=== PATIENT | female | born 1955 | race Caucasian/White ===

== ENCOUNTER 2018-12-30 18:35 | Emergency (ER) | payer OTHER, SELFPAY ==
[~2018-12-30] VITALS: Ht 157.5 cm; Wt 86.4 kg
[~2018-12-30 18:35] MED LIST: AMIT25TA9 PO; ASPI81TA81 PO; HYDR25TA PO; LISI-663 PO; SIMV-260 PO
[2018-12-30] MEDS ORDERED: LISI-662 PO (18:48)
[2018-12-30] MEDS ORDERED: SILVER SULFADIAZINE 1% 25 GM CREAM TP ONE (19:00)
[2018-12-30 19:28] VITALS: BP 145/85
== END 2018-12-30 19:29 | disposition home or self-care (01) ==
LOC: EMS 18:36
DX: T23.172A Burn of first degree of left wrist, initial encounter (principal); I10 Essential (primary) hypertension; E78.00 Pure hypercholesterolemia, unspecified; Z90.710 Acquired absence of both cervix and uterus; Z88.5 Allergy status to narcotic agent; Z79.899 Other long term (current) drug therapy; X11.8XXA Contact with other hot tap-water, initial encounter; Y93.G3 Activity, cooking and baking; Y92.89 Other specified places as the place of occurrence of the external cause; Y99.8 Other external cause status
CPT/HCPCS: 16000

== ENCOUNTER 2023-08-02 02:23 | Emergency (ER) | payer MEDICARE, OTHER ==
[~2023-08-02] VITALS: Ht 157.5 cm; Wt 89.0 kg
[~2023-08-02 02:23] MED LIST changes: -AMIT25TA9 PO; -ASPI81TA81 PO; -HYDR25TA PO; -LISI-663 PO; +LISI-894 PO
[2023-08-02 02:28] VITALS: BP 150/60; PULSE 89; RESP 18; TEMP 98.3
[2023-08-02 02:54] LABS: BASOPHILS % (AUTO) 0.6 % (0.0-2.0); EOSINOPHILS % (AUTO) 2.4 % (1.0-6.0); HEMATOCRIT 41.7 % (36-46); HEMOGLOBIN 14.3 g/dL (12.0-16.0); LYMPHOCYTES # (AUTO) 2.9 K/uL (1.0-4.8); LYMPHOCYTES % (AUTO) 26.7 % (22.0-44.0); MEAN CORPUSCULAR HEMOGLOBIN 31.2 pg (26.0-34.0); MEAN CORPUSCULAR HGB CONC 34.4 G/dL (31.0-37.0); MEAN CORPUSCULAR VOLUME 91 fL (80-100); MONOCYTES # (AUTO) 0.7 K/uL (0.1-1.0); MONOCYTES % (AUTO) 6.6 % (2.0-9.0); NEUTROPHILS % (AUTO) 63.7 % (40.0-70.0); PLATELET COUNT (AUTO) 212 K/uL (150-450); RED CELL DISTRIBUTION WIDTH 13.3 % (11.5-14.5)
[2023-08-02 03:01] LABS: ANION GAP 11 mmol/L (8-16); CALCIUM, TOTAL 10.5 mg/dL (8.8-10.5); CARBON DIOXIDE 25 mmol/L (22-29); CHLORIDE 105 mmol/L (98-107); CREATININE 0.77 mg/dL (0.60-1.30); GLOMERULAR FILTR. RATE CALC > 60 mL/min (>60); GLUCOSE,RANDOM 130 mg/dL (70-110); POTASSIUM 3.6 mmol/L (3.5-5.1); SODIUM SERUM 141 mmol/L (136-145); UREA NITROGEN, BLOOD 15 mg/dL (7-18)
[2023-08-02 03:06] LABS: ALANINE AMINOTRANSFERASE 30 U/L (12-78); ALKALINE PHOSPHATASE 160 U/L (46-116); ASPARTATE AMINOTRANSFERASE 17 U/L (15-37); BILIRUBIN,TOTAL 0.4 mg/dL (0.1-1.0); TOTAL PROTEIN, SERUM 7.5 g/dL (6.4-8.2)
[2023-08-02 03:10] LABS: APPEARANCE,URINE CLEAR (CLEAR); BILIRUBIN,URINE NEGATIVE (NEGATIVE); COLOR,URINE COLORLESS (YELLOW); GLUCOSE, URINE (UA) NEGATIVE (NEGATIVE); KETONES,URINE NEGATIVE (NEGATIVE); LEUKOCYTE ESTERASE ,URINE NEGATIVE (NEGATIVE); NITRATE,URINE NEGATIVE (NEGATIVE); OCCULT BLOOD,URINE NEGATIVE (NEGATIVE); PROTEIN,URINE NEGATIVE (NEGATIVE); SPECIFIC GRAVITIY, URINE 1.006 (1.003-1.030); UROBILINOGEN,URINE <=1.0 mg/dL (<=1.0)
== END 2023-08-02 04:10 | disposition home or self-care (01) ==
LOC: EMS 02:24
DX: R35.0 Frequency of micturition (principal); E78.00 Pure hypercholesterolemia, unspecified; I10 Essential (primary) hypertension; Z90.710 Acquired absence of both cervix and uterus; Z88.5 Allergy status to narcotic agent
CPT/HCPCS: 80053; 81003; 85025; 99283

== ENCOUNTER 2023-10-24 17:21 | Emergency (ER) | payer MEDICARE, OTHER ==
[~2023-10-24] VITALS: Ht 157.5 cm; Wt 84.5 kg
[2023-10-24 17:43] VITALS: BP 154/54; PULSE 98; RESP 18; TEMP 98.4
[2023-10-24 17:55] LABS: COVID AG,FIA SOURCE NASAL SWAB
[2023-10-24 18:02] LABS: INFLUENZA TYPE A NEGATIVE FOR TYPE A (NEGATIVE); INFLUENZA TYPE B NEGATIVE FOR TYPE B (NEGATIVE); SARS-COV2 (COVID) ANTIGEN,FIA Negative (Negative)
[2023-10-26] MEDS ORDERED: IBUP-1492 PO (22:32)
[2023-10-26] MEDS ORDERED: AMOX500C2 PO (22:32)
== END 2023-10-24 21:10 | disposition left against medical advice (07) ==
LOC: EMS 17:21
DX: R05.9 Cough, unspecified (principal); Z20.822 Contact with and (suspected) exposure to COVID-19; Z53.21 Procedure and treatment not carried out due to patient leaving prior to being seen by health care provider
CPT/HCPCS: 87804